=== PATIENT | female | born 1955 | race Caucasian/White ===

== ENCOUNTER 2016-04-17 12:10 | Day surgery (SDC) ==
[2016-04-17] MEDS ORDERED: DECADRON ONE (12:35)
[2016-04-17] MEDS ORDERED: EMEND 150 MG in NS 145 ML IV ONE (13:30)
[2016-04-17] MEDS ORDERED: PATIENT'S OWN MED INJ ONE (13:30)
[2016-04-17] MEDS ORDERED: NS IV ONE ×3 (14:00→14:30)
[2016-04-17] MEDS ORDERED: GEMZAR IV ONE ×2 (14:00)
[2016-04-17] MEDS ORDERED: PARAPLATIN IV ONE (14:30)
[2016-04-17] MEDS ORDERED: HEPARIN ONE (16:39)
[2016-04-17 17:15] VITALS: BP 127/69
== END 2016-04-17 17:00 | disposition home or self-care (01) ==
LOC: INF 12:10
PROVIDERS: ATTEND Internal Medicine Hematology & Oncology
DX: Z51.11 Encounter for antineoplastic chemotherapy (principal); C34.32 Malignant neoplasm of lower lobe, left bronchus or lung; Z79.899 Other long term (current) drug therapy; Z79.01 Long term (current) use of anticoagulants
CPT/HCPCS: 96375; 96413; 96417; J1453; J7050; J9045; J9201

== ENCOUNTER 2016-04-25 10:16 | Day surgery (SDC) ==
[2016-04-25] MEDS ORDERED: SODIUM CHLORIDE 0.9% 10 ML ONE (10:45)
[2016-04-25] MEDS ORDERED: DECADRON ONE (10:45)
[2016-04-25] MEDS ORDERED: DECADRON IV ONE (11:15)
[2016-04-25] MEDS ORDERED: PATIENT'S OWN MED INJ ONE (11:30)
[2016-04-25] MEDS ORDERED: IN NS MISC ONE (11:30)
[2016-04-25] MEDS ORDERED: ALOXI IV ONE (11:30)
[2016-04-25] MEDS ORDERED: EMEND 150 MG in NS 145 ML IV ONE ×4 (11:30)
[2016-04-25] MEDS ORDERED: GEMZAR IV ONE (12:00)
[2016-04-25] MEDS ORDERED: NS IV ONE ×2 (12:00→12:30)
[2016-04-25] MEDS ORDERED: PARAPLATIN IV ONE (12:30)
[2016-04-25] MEDS ORDERED: HEPARIN ONE (12:42)
[2016-04-25 14:49] VITALS: BP 114/79
== END 2016-04-25 14:35 | disposition home or self-care (01) ==
LOC: INF 10:16
PROVIDERS: ATTEND Internal Medicine
DX: Z51.11 Encounter for antineoplastic chemotherapy (principal); C34.32 Malignant neoplasm of lower lobe, left bronchus or lung; Z79.899 Other long term (current) drug therapy; Z79.01 Long term (current) use of anticoagulants
CPT/HCPCS: 96366; 96375; 96413; 96417; J1453; J2469; J7050; J9045; J9201